=== PATIENT | female | born 1980 | race Hispanic/Latino ===

== ENCOUNTER 2018-03-03 17:23 | Emergency (ER) | payer OTHER ==
[~2018-03-03] VITALS: Ht 170.2 cm; Wt 108.9 kg
[2018-03-03] MEDS ORDERED: HYDROCODONE/APAP 7.5MG-325MG 1 EA TAB PO PRN (18:00)
[2018-03-03] MEDS ORDERED: CYCLOBENZAPRINE HCL 10 MG TAB PO ONE (18:00)
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
[2018-03-03 19:49] VITALS: BP 143/92
== END 2018-03-03 20:15 | disposition home or self-care (01) ==
LOC: ER 17:23
DX: M54.2 Cervicalgia (principal); M54.6 Pain in thoracic spine; M25.512 Pain in left shoulder; V43.52XA Car driver injured in collision with other type car in traffic accident, initial encounter; Y92.488 Other paved roadways as the place of occurrence of the external cause; Z85.42 Personal history of malignant neoplasm of other parts of uterus
CPT/HCPCS: 72050; 99283